=== PATIENT | female | born 2000 | race Caucasian/White ===

== ENCOUNTER 2020-09-22 03:18 | Emergency (ER) | payer OTHER ==
[2020-09-22 03:58] VITALS: BP 112/68; TEMP 98.8; BMI 29.8
[2020-09-22] MEDS ORDERED: ALPRAZolam 1 MG TABLET PO PRN (05:17)
[2020-09-22] MEDS ORDERED: LACTATED RINGERS SOLUTION 1000 ML INFUS.BAG IV ONE (05:21)
[2020-09-22] MEDS ORDERED: ALPRAZolam 0.25 MG TABLET ONE (05:27)
[2020-09-22] MEDS ORDERED: FAMOTIDINE 10 MG TABLET PO ONE (05:59)
[2020-09-22 06:04] LABS: BASO % 0.7 % (0-2.0); EOS % 0.1 % (0-4.5); HEMATOCRIT 38.1 % (32.4-45.2); HEMOGLOBIN 12.8 GM/dL (10.7-15.3); LYMPH % 11.5 % (8-40); MCH 29.2 pg (25.7-33.7); MCHC 33.5 g/dl (32.0-36.0); MEAN CELL VOLUME 87.1 fl (80-96); MONO % 4.3 % (3.8-10.2); NEUT % 83.4 % (42.8-82.8); PLATELET COUNT 237 K/MM3 (134-434); RBC 4.38 M/mm3 (3.60-5.2); RDW 13.2 % (11.6-15.6)
[2020-09-22 06:24] LABS: CHLORIDE 103 mmol/L (98-107); POTASSIUM 4.5 mmol/L (3.5-5.1); SODIUM 136 mmol/L (136-145)
[2020-09-22 06:25] LABS: INR 0.96 (0.83-1.09); PROTHROMBIN TIME (PATIENT) 11.8 SEC (9.7-13.0)
[2020-09-22 06:27] LABS: ALBUMIN 3.8 g/dl (3.4-5.0); ANION GAP 8 MMOL/L (8-16); BLOOD UREA NITROGEN 12.7 mg/dL (7-18); CALCIUM 9.5 mg/dL (8.5-10.1); CO2 26 mmol/L (21-32); GLUCOSE,RANDOM 90 mg/dL (74-106)
[2020-09-22] MEDS ORDERED: FAMOTIDINE 10 MG TABLET ONE (06:27)
[2020-09-22 06:28] LABS: ACTIVATED PTT 25.3 SECONDS (25.2-36.5)
[2020-09-22 06:30] LABS: BILIRUBIN,DIRECT 0.1 mg/dL (0.0-0.2); CREATININE 0.8 mg/dL (0.55-1.3); SGOT/AST 15 U/L (15-37); SGPT/ALT 22 U/L (13-61)
[2020-09-22 06:31] LABS: LDH 166 U/L (84-246)
[2020-09-22 06:32] LABS: BILIRUBIN,TOTAL 0.2 mg/dL (0.2-1); TOT PROT 7.2 g/dl (6.4-8.2)
[2020-09-22 06:33] LABS: ALK PHOS 73 U/L (45-117)
[2020-09-22 07:03] VITALS: PULSE 73
== END 2020-09-22 07:11 | disposition home or self-care (01) ==
LOC: JER 03:18
DX: F12.920 Cannabis use, unspecified with intoxication, uncomplicated (principal)
CPT/HCPCS: 36415; 80053; 82248; 82550; 82728; 83615; 84484; 84703; 85025; 85610; 85730; 86140; 93005; 93010; 99284-25; C9803; U0003

== ENCOUNTER 2021-02-28 16:44 | Emergency (ER) | payer OTHER ==
[2021-02-28 16:52] VITALS: BP 132/71; PULSE 99; TEMP 98.5; BMI 29.8
== END 2021-02-28 18:36 | disposition home or self-care (01) ==
LOC: JERFT 16:44
DX: F41.9 Anxiety disorder, unspecified (principal)
CPT/HCPCS: 84703; 93005; 93010; 99284-25

== ENCOUNTER 2021-03-27 22:00 | Emergency (ER) | payer OTHER ==
[2021-03-27 22:09] VITALS: BMI 29.8
[2021-03-27] MEDS ORDERED: SODIUM CHLORIDE 1,000 ML IV STA (22:41)
[2021-03-27] MEDS ORDERED: ONDANSETRON 4 MG/2 ML VIAL IVPB ONE (22:41)
[2021-03-27] MEDS ORDERED: ONDANSETRON 4 MG/2 ML VIAL ONE (22:45)
[2021-03-27 23:12] LABS: BASO % 0.6 % (0-2.0); EOS % 0.2 % (0-4.5); HEMATOCRIT 40.2 % (32.4-45.2); HEMOGLOBIN 13.9 GM/dL (10.7-15.3); LYMPH % 18.6 % (8-40); MCH 30.3 pg (25.7-33.7); MCHC 34.5 g/dl (32.0-36.0); MEAN CELL VOLUME 87.8 fl (80-96); NEUT % 76.6 % (42.8-82.8); PLATELET COUNT 282 K/MM3 (134-434); RBC 4.58 M/mm3 (3.60-5.2); RDW 13.7 % (11.6-15.6); WHITE BLOOD COUNT 10.8 K/mm3 (4.0-10.0)
[2021-03-27 23:17] LABS: PH,URINE 6.5 (5.0-8.0); URINE APPEARANCE CLEAR; URINE BILIRUBIN NEGATIVE (NEGATIVE); URINE COLOR YELLOW; URINE GLUCOSE (UA) NEGATIVE (NEGATIVE); URINE KETONE NEGATIVE (NEGATIVE); URINE LEUK ESTERASE NEGATIVE (NEGATIVE); URINE NITRITE NEGATIVE (NEGATIVE); URINE PROTEIN NEGATIVE (NEGATIVE); URINE UROBILINOGEN 0.2 mg/dL (0.2-1.0)
[2021-03-27 23:18] LABS: HCG,QUALITATIVE URINE Negative
[2021-03-27 23:49] LABS: EPI CELLS 3.4 /uL (0-25.1); URINE RBC 1.6 /uL (0-23.9)
[2021-03-27 23:50] LABS: BLOOD UREA NITROGEN 11.3 mg/dL (7-18); CALCIUM 9.9 mg/dL (8.5-10.1)
[2021-03-27 23:51] LABS: ALBUMIN 4.2 g/dl (3.4-5.0)
[2021-03-27 23:54] LABS: BILIRUBIN,TOTAL 0.3 mg/dL (0.2-1); CREATININE 0.9 mg/dL (0.55-1.3); TOT PROT 7.8 g/dl (6.4-8.2)
[2021-03-28] MEDS ORDERED: ACETAMINOPHEN 1000 MG/100 ML VIAL (NON FORMULARY) IVPB ONE (01:39)
[2021-03-28] MEDS ORDERED: ACETAMINOPHEN INJECTION 100 ML IVPB ONE (01:41)
[2021-03-28 02:49] VITALS: BP 117/86; PULSE 73; TEMP 98.3
== END 2021-03-28 02:49 | disposition home or self-care (01) ==
LOC: JER 22:00
PROC: 3E033NZ Introduction of Analgesics, Hypnotics, Sedatives into Peripheral Vein, Percutaneous Approach (ICD-10-PCS; principal; 2021-03-27)
PROC: 3E0337Z Introduction of Electrolytic and Water Balance Substance into Peripheral Vein, Percutaneous Approach (ICD-10-PCS; 2021-03-27)
PROC: 3E033GC Introduction of Other Therapeutic Substance into Peripheral Vein, Percutaneous Approach (ICD-10-PCS; 2021-03-28)
DX: R10.31 Right lower quadrant pain (principal); R10.2 Pelvic and perineal pain; N83.201 Unspecified ovarian cyst, right side
CPT/HCPCS: 36415; 74177-TC; 76830-TC; 80053; 81003; 84703; 85025; 99285-25; J0131

== ENCOUNTER 2021-04-20 10:02 | Emergency (ER) | payer OTHER ==
[2021-04-20 10:10] VITALS: BP 140/86; PULSE 95; TEMP 99.2; BMI 29.9
[2021-04-20] MEDS ORDERED: ONDANSETRON 4 MG TABLET PO ONE (10:39)
[2021-04-20] MEDS ORDERED: ONDANSETRON *ODT* 4 MG TABLET ONE (10:46)
== END 2021-04-20 10:58 | disposition home or self-care (01) ==
LOC: JERFT 10:02
DX: R20.2 Paresthesia of skin (principal); R11.0 Nausea; M79.602 Pain in left arm
CPT/HCPCS: 99283-25

== ENCOUNTER 2022-02-18 02:51 | Emergency (ER) | payer OTHER ==
[2022-02-18 03:08] VITALS: BP 105/79; PULSE 85; TEMP 98.6; BMI 32.3
[2022-02-18] MEDS ORDERED: ACETAMINOPHEN 500 MG TABLET (FP) PO ONE (03:43)
[2022-02-18] MEDS ORDERED: diphenhydrAMINE HCL 25 MG CAPSULE (FP) PO ONE ×2 (03:43→03:58)
[2022-02-18] MEDS ORDERED: METOCLOPRAMIDE HCL 10 MG TABLET (FP) PO ONE ×2 (03:43→03:58)
[2022-02-18] MEDS ORDERED: ACETAMINOPHEN 325 MG TABLET (FP) ONE (03:58)
== END 2022-02-18 05:19 | disposition home or self-care (01) ==
LOC: JER 02:51
DX: R51.9 Headache, unspecified (principal)
CPT/HCPCS: 99283-25

== ENCOUNTER 2022-02-19 03:42 | Emergency (ER) | payer OTHER ==
[2022-02-19 04:08] VITALS: TEMP 98.3; BMI 30.9
[2022-02-19] MEDS ORDERED: LORazepam 2 MG TABLET PO ONE (05:07)
[2022-02-19] MEDS ORDERED: LORazepam 1 MG TABLET ONE (05:09)
[2022-02-19 07:01] VITALS: BP 108/87; PULSE 75
== END 2022-02-19 07:02 | disposition home or self-care (01) ==
LOC: JER 03:42
DX: R51.9 Headache, unspecified (principal)
CPT/HCPCS: 70450-TC; 93005; 93010; 99284-25